=== PATIENT | female | born 1985 | race American Indian/Alaskan Native ===

== ENCOUNTER 2021-07-11 14:37 | Emergency (ER) | payer OTHER, MEDICAID ==
[~2021-07-11] VITALS: Ht 175.3 cm; Wt 59.1 kg
[2021-07-11 15:18] LABS: BASOPHILS % (AUTO) 1.1 % (0.0-2.0); HEMATOCRIT 39.8 % (36-46); HEMOGLOBIN 13.5 g/dL (12.0-16.0); LYMPHOCYTES # (AUTO) 1.4 K/uL (1.0-4.8); LYMPHOCYTES % (AUTO) 27.9 % (22.0-44.0); MEAN CORPUSCULAR HEMOGLOBIN 32.4 pg (26.0-34.0); MEAN CORPUSCULAR HGB CONC 34.1 G/dL (31.0-37.0); MEAN CORPUSCULAR VOLUME 95 fL (80-100); MONOCYTES # (AUTO) 0.3 K/uL (0.1-1.0); MONOCYTES % (AUTO) 5.4 % (2.0-9.0); NEUTROPHILS # (AUTO) 3.2 K/uL (1.8-7.7); NEUTROPHILS % (AUTO) 64.6 % (40.0-70.0); PLATELET COUNT (AUTO) 200 K/uL (150-450); RED BLOOD CELL COUNT(AUTO) 4.18 MIL/uL (4.00-5.20); RED CELL DISTRIBUTION WIDTH 13.5 % (11.5-14.5)
[2021-07-11 15:30] LABS: ANION GAP 13 mmol/L (8-16); CARBON DIOXIDE 27 mmol/L (22-29); CHLORIDE 108 mmol/L (98-107); CREATININE 0.57 mg/dL (0.60-1.30); GLUCOSE,RANDOM 98 mg/dL (70-110); POTASSIUM 3.8 mmol/L (3.5-5.1); SODIUM SERUM 148 mmol/L (136-145); UREA NITROGEN, BLOOD 8 mg/dL (7-18)
[2021-07-11 15:36] LABS: GLOMERULAR FILTR. RATE CALC > 60 mL/min (>60)
[2021-07-11 15:53] LABS: ALANINE AMINOTRANSFERASE 32 U/L (12-78); ALBUMIN 4.3 g/dL (3.4-5.0); ALKALINE PHOSPHATASE 68 U/L (46-116); ASPARTATE AMINOTRANSFERASE 27 U/L (15-37); BILIRUBIN,TOTAL 0.4 mg/dL (0.1-1.0); CREATINE KINASE, TOTAL ONLY 112 U/L (26-192); HCG,QUANTITATIVE < 1 mIU/mL (0-6)
[2021-07-11 16:00] LABS: B-TYPE NATRIURETIC PEPTIDE 10 pg/mL (0-100)
[2021-07-11] MEDS ORDERED: LORazepam 1 MG TABLET PO ONE (17:00)
[2021-07-11] MEDS ORDERED: CefTRIAXone SODIUM 1 GM/VIAL IM ONE (17:00)
[2021-07-11] MEDS ORDERED: LIDOCAINE/PF 1% 2 ML VIAL IM ONE (17:00)
[2021-07-11] MEDS ORDERED: DOXYCYCLINE HYCLATE 100 MG TABLET PO ONE (17:00)
[2021-07-11 18:07] LABS: APPEARANCE,URINE CLEAR (CLEAR); BILIRUBIN,URINE NEGATIVE (NEGATIVE); GLUCOSE, URINE (UA) NEGATIVE (NEGATIVE); KETONES,URINE TRACE mg/dL (NEGATIVE); LEUKOCYTE ESTERASE ,URINE NEGATIVE (NEGATIVE); NITRATE,URINE NEGATIVE (NEGATIVE); OCCULT BLOOD,URINE NEGATIVE (NEGATIVE); PH,URINE 7.5 (5.0-8.0); PROTEIN,URINE NEGATIVE (NEGATIVE)
[2021-07-11 18:17] LABS: AMPHET/METH SCREEN,URINE NEGATIVE (NEGATIVE); BARBITURATE SCREEN, URINE NEGATIVE (NEGATIVE); BENZODIAZEPINES SCREEN,URINE NEGATIVE (NEGATIVE); CANNABINOID SCREEN,URINE POSITIVE (NEGATIVE); COCAINE SCREEN,URINE NEGATIVE (NEGATIVE); METHADONE SCREEN, URINE NEGATIVE (NEGATIVE); OPIATE SCREEN,URINE NEGATIVE (NEGATIVE)
[2021-07-11 18:55] LABS: PHENCYCLIDINE SCREEN,URINE NEGATIVE (NEGATIVE)
[2021-07-11 19:16] VITALS: BP 119/80
[2021-07-14 02:06] LABS: HIV 1-2 SCREEN 4TH GEN W/RFLX Non Reactive (Non Reactive)
== END 2021-07-11 19:20 | disposition home or self-care (01) ==
LOC: EMS 14:37
DX: S60.221A Contusion of right hand, initial encounter (principal); T76.21XA Adult sexual abuse, suspected, initial encounter; F10.129 Alcohol abuse with intoxication, unspecified; F32.9 Major depressive disorder, single episode, unspecified; F17.210 Nicotine dependence, cigarettes, uncomplicated; F41.9 Anxiety disorder, unspecified; Y93.89 Activity, other specified; Y92.89 Other specified places as the place of occurrence of the external cause; Y99.8 Other external cause status; Z98.51 Tubal ligation status
CPT/HCPCS: 36415; 70450; 71045; 73130; 80053; 80307; 81003; 82550; 83880; 84484; 84702; 85025; 85610; 85730; 86592; 87389; 87491; 87591; 93005; 96372; 99285; G0480; J0696; J3490